=== PATIENT | male | born 1980 | race Asian ===

== ENCOUNTER 2016-12-11 17:08 | Emergency (ER) | payer OTHER ==
[~2016-12-11] VITALS: Ht 182.9 cm; Wt 78.9 kg
[2016-12-11 19:11] LABS: CALCIUM 8.4 mg/dL (8.5-10.1); CARBON DIOXIDE 30.1 mmol/L (21-32); CHLORIDE SERUM 104 mmol/L (98-107); CREATININE SERUM 1.1 mg/dL (0.7-1.3); GFR1 > 60 mL/min; GLUCOSE SERUM 109 mg/dL (74-106); POTASSIUM SERUM 3.7 mmol/L (3.5-5.1); SODIUM SERUM 138 mmol/L (136-145)
[2016-12-11 19:15] LABS: ALBUMIN 3.6 g/dL (3.4-5.0); ALKALINE PHOSPHATASE 61 U/L (46-116); ALT/SGPT 27 U/L (16-63); AST/SGOT 16 U/L (15-37); LIPASE 118 IU/L (73-393); TOTAL PROTEIN, SERUM 6.7 g/dL (6.4-8.2)
[2016-12-11 19:19] LABS: BASOPHIL % 0.4 % (0-2); PLATELET COUNT 179 x10^3mcL (130-400); RED CELL DISTRIBUTION WIDTH 13.3 % (11.5-14.5)
[2016-12-11 20:29] VITALS: BP 109/72
== END 2016-12-11 20:29 | disposition home or self-care (01) ==
LOC: ED 17:08
PROVIDERS: Emergency Medicine
DX: B34.9 Viral infection, unspecified (principal)
CPT/HCPCS: J1885; J7613; J7644; Q0092

== ENCOUNTER 2016-12-12 18:29 | Emergency (ER) | payer OTHER ==
[2016-12-12 22:14] LABS: BASOPHIL % 0.2 % (0-2); PLATELET COUNT 189 x10^3mcL (130-400); RED CELL DISTRIBUTION WIDTH 13.1 % (11.5-14.5)
[2016-12-12 22:34] LABS: ALBUMIN 3.7 g/dL (3.4-5.0); ALKALINE PHOSPHATASE 69 U/L (46-116); ALT/SGPT 24 U/L (16-63); AST/SGOT 13 U/L (15-37); BILIRUBIN TOTAL 1.3 mg/dL (0.20-1.00); CALCIUM 9.1 mg/dL (8.5-10.1); CARBON DIOXIDE 30.8 mmol/L (21-32); CHLORIDE SERUM 103 mmol/L (98-107); CREATININE SERUM 1.1 mg/dL (0.7-1.3); GFR1 > 60 mL/min; GLUCOSE SERUM 95 mg/dL (74-106); LIPASE 116 IU/L (73-393); POTASSIUM SERUM 4.6 mmol/L (3.5-5.1); SODIUM SERUM 141 mmol/L (136-145); TOTAL PROTEIN, SERUM 7.3 g/dL (6.4-8.2)
[2016-12-12 23:00] VITALS: BP 113/74
== END 2016-12-12 23:00 | disposition home or self-care (01) ==
LOC: ED 18:29
PROVIDERS: Emergency Medicine
DX: R10.30 Lower abdominal pain, unspecified (principal)

== ENCOUNTER 2017-12-17 19:39 | Emergency (ER) | payer OTHER ==
[~2017-12-17] VITALS: Ht 175.3 cm; Wt 86.2 kg
[2017-12-17 19:46] VITALS: Ht 175.3 cm; Wt 86.2 kg
[2017-12-17 21:43] VITALS: BP 132/82
== END 2017-12-17 21:43 | disposition home or self-care (01) ==
LOC: ED 19:39
DX: K21.9 Gastro-esophageal reflux disease without esophagitis (principal)
CPT/HCPCS: J3490; Q0092

== ENCOUNTER 2018-02-01 11:14 | Emergency (ER) | payer OTHER ==
[~2018-02-01] VITALS: Ht 175.3 cm; Wt 83.0 kg
[2018-02-01 11:19] VITALS: Ht 175.3 cm; Wt 83.0 kg
[2018-02-01 12:19] LABS: UA SPECIFIC GRAVITY 1.025 (1.005-1.035); microscopic required? YES; urine erythrocyte 3+ (NEGATIVE)
[2018-02-01 12:36] LABS: PLATELET COUNT 159 x10^3mcL (130-400); RED CELL DISTRIBUTION WIDTH 13.2 % (11.5-14.5)
[2018-02-01 12:38] LABS: BASOPHIL % 0 % (0-2)
[2018-02-01 12:42] LABS: CALCIUM 8.5 mg/dL (8.5-10.1); CARBON DIOXIDE 28.8 mmol/L (21-32); CHLORIDE SERUM 101 mmol/L (98-107); CREATININE SERUM 1.2 mg/dL (0.7-1.3); GFR1 > 60 mL/min; GLUCOSE SERUM 116 mg/dL (74-106); POTASSIUM SERUM 3.7 mmol/L (3.5-5.1); SODIUM SERUM 137 mmol/L (136-145)
[2018-02-01 12:47] LABS: ALBUMIN 3.7 g/dL (3.4-5.0); ALKALINE PHOSPHATASE 53 U/L (46-116); ALT/SGPT 40 U/L (16-63); AST/SGOT 14 U/L (15-37); TOTAL PROTEIN, SERUM 7.4 g/dL (6.4-8.2)
[2018-02-01 13:56] VITALS: BP 97/55
== END 2018-02-01 15:15 | disposition home or self-care (01) ==
LOC: ED 11:14
PROVIDERS: Emergency Medicine
DX: R10.9 Unspecified abdominal pain (principal); R31.9 Hematuria, unspecified
CPT/HCPCS: J1885

== ENCOUNTER 2019-01-17 18:41 | Emergency (ER) | payer OTHER ==
[~2019-01-17] VITALS: Ht 180.3 cm; Wt 82.1 kg
[2019-01-17 18:46] VITALS: Ht 180.3 cm; Wt 82.1 kg
[2019-01-17 19:46] VITALS: BP 116/69
== END 2019-01-17 19:47 | disposition home or self-care (01) ==
LOC: ED 18:41
DX: R11.2 Nausea with vomiting, unspecified (principal); R19.7 Diarrhea, unspecified
CPT/HCPCS: Q0162

== ENCOUNTER 2019-07-28 16:06 | Emergency (ER) | payer OTHER ==
[~2019-07-28] VITALS: Ht 175.3 cm; Wt 80.7 kg
[2019-07-28 16:19] VITALS: Ht 175.3 cm; Wt 80.7 kg
[2019-07-28 18:42] VITALS: BP 113/67
== END 2019-07-28 18:42 | disposition home or self-care (01) ==
LOC: ED 16:06
DX: R51 Headache (principal); R09.81 Nasal congestion

== ENCOUNTER 2019-08-04 08:50 | Emergency (ER) | payer OTHER ==
[~2019-08-04] VITALS: Ht 175.3 cm; Wt 80.7 kg
[2019-08-04 09:03] VITALS: Ht 175.3 cm; Wt 80.7 kg
[2019-08-04 11:04] LABS: BASOPHIL % 0.3 % (0-2); PLATELET COUNT 188 x10^3mcL (130-400); RED CELL DISTRIBUTION WIDTH 13.3 % (11.5-14.5)
[2019-08-04 11:17] LABS: CALCIUM 9.2 mg/dL (8.5-10.1); CARBON DIOXIDE 31.5 mmol/L (21-32); CHLORIDE SERUM 104 mmol/L (98-107); CREATININE SERUM 1.1 mg/dL (0.7-1.3); GFR1 > 60 mL/min; GLUCOSE SERUM 86 mg/dL (74-106); POTASSIUM SERUM 4.3 mmol/L (3.5-5.1); SODIUM SERUM 141 mmol/L (136-145)
[2019-08-04 11:21] LABS: ALBUMIN 3.8 g/dL (3.4-5.0); ALKALINE PHOSPHATASE 55 U/L (46-116); ALT/SGPT 29 U/L (16-63); AST/SGOT 17 U/L (15-37); BILIRUBIN TOTAL 0.48 mg/dL (0.20-1.00); CHOLESTEROL 214 mg/dL (<200); CHOLESTEROL/HDL RATIO 7.4; HDL CHOLESTEROL 29 mg/dL (40-60); TOTAL PROTEIN, SERUM 7.5 g/dL (6.4-8.2); TRIGLYCERIDES 326 mg/dL (<150)
[2019-08-04 11:29] LABS: FREE T4 0.97 ng/dL (0.76-1.46); FREE THYROXINE INDEX 2.3 ug/dL (1.4-4.5); T4(THYROXINE) 6.1 ug/dL (4.7-13.3)
[2019-08-04 11:55] LABS: T3 TOTAL 0.94 ng/mL
[2019-08-04 12:11] LABS: ERYTHROCYTE SED RATE 8 mm/hr (0-15)
[2019-08-04 13:10] VITALS: BP 111/71
== END 2019-08-04 13:21 | disposition home or self-care (01) ==
LOC: ED 08:50
PROVIDERS: Specialist
DX: R51 Headache (principal)
CPT/HCPCS: 84439; 87804; J2405; J3010; J7030; Q0092; Q9967

== ENCOUNTER 2020-09-26 10:01 | Emergency (ER) | payer OTHER ==
[~2020-09-26] VITALS: Ht 180.3 cm; Wt 83.9 kg
[2020-09-26 10:11] VITALS: Ht 180.3 cm; Wt 83.9 kg
[2020-09-26 12:20] LABS: BASOPHIL % 0.4 % (0.2-1.5); PLATELET COUNT 186 x10^3mcL (152-348); RED CELL DISTRIBUTION WIDTH 13.2 % (12.1-16.2)
[2020-09-26 12:38] LABS: CALCIUM 8.7 mg/dL (8.5-10.1); CARBON DIOXIDE 30.9 mmol/L (21-32); CHLORIDE SERUM 107 mmol/L (98-107); GFR1 > 60 mL/min; GLUCOSE SERUM 99 mg/dL (74-106); POTASSIUM SERUM 4.4 mmol/L (3.5-5.1); SODIUM SERUM 140 mmol/L (136-145)
[2020-09-26 12:42] LABS: ALBUMIN 3.8 g/dL (3.4-5.0); ALKALINE PHOSPHATASE 50 U/L (46-116); ALT/SGPT 70 U/L (16-63); AST/SGOT 27 U/L (15-37); BILIRUBIN TOTAL 0.6 mg/dL (0.20-1.00); HDL CHOLESTEROL 35 mg/dL (40-60); TOTAL PROTEIN, SERUM 7.2 g/dL (6.4-8.2); TRIGLYCERIDES 168 mg/dL (<150)
[2020-09-26 12:46] LABS: CHOLESTEROL 213 mg/dL (<200); CHOLESTEROL/HDL RATIO 6.1
[2020-09-26 12:52] LABS: T3 TOTAL 1.04 ng/mL
[2020-09-26 12:57] LABS: FREE T4 0.94 ng/dL (0.76-1.46); FREE THYROXINE INDEX 2.2 ug/dL (1.4-4.5); T4(THYROXINE) 5.7 ug/dL (4.7-13.3)
[2020-09-26 14:10] VITALS: BP 129/85
== END 2020-09-26 14:10 | disposition home or self-care (01) ==
LOC: ED 10:01
PROVIDERS: Specialist
DX: H81.10 Benign paroxysmal vertigo, unspecified ear (principal)
CPT/HCPCS: 82962; 84439